=== PATIENT | male | born 1995 | race Caucasian/White ===

== ENCOUNTER 2020-03-16 01:50 | Emergency (ER) | payer MEDICAID ==
[~2020-03-16] VITALS: Ht 170.2 cm; Wt 175.0 kg
[2020-03-16] MEDS ORDERED: NS 1,000 ML IV ONE (03:00)
--- NOTE | 2020-03-16 03:19 | REPVR ---
PROCEDURE INFORMATION: Exam: XR Chest, 2 Views Exam date and time: 03/16/2020 2:41 AM Age: 24 years old Clinical indication: Chest pain TECHNIQUE: Imaging protocol: XR of the chest Views: 2 views. COMPARISON: No relevant prior studies available. FINDINGS: Lungs: Unremarkable. No consolidation. Pleural space: Unremarkable. No pleural effusion. No pneumothorax. Heart/Mediastinum: Unremarkable. No cardiomegaly. Bones/joints: Absent distal right clavicle suggesting previous resection or possibly old trauma and fracture. IMPRESSION: 1. Deformity and absence of the distal right clavicle suggesting postsurgical or possibly posttraumatic change. 2. Otherwise negative chest. Electronically signed by: Orlando Zuniga On 03/16/2020 03:20:05 AM
[2020-03-16 04:40] LABS: BASO # 0.1 10^3/uL (0.0-0.2); BASO % 0.6 % (0.0-1.0); EOS # 0.2 10^3/uL (0.0-0.5); EOS % 1.3 % (0.0-3.0); HEMATOCRIT 42.6 % (42.0-52.0); HEMOGLOBIN 13.8 g/dl (13.5-17.5); LYMPH # 1.8 10^3/uL (1.5-5.0); LYMPH % 13.2 % (24.0-44.0); MEAN CORPUSCULAR HEMOGLOBIN 28.5 pg (27.0-33.0); MEAN CORPUSCULAR HGB CONC 32.4 g/dl (32.0-36.5); MONO # 0.7 10^3/uL (0.0-0.8); MONO % 5.1 % (0.0-5.0); NEUTROPHILS # 10.8 10^3/uL (1.5-8.5); NEUTROPHILS % 79.4 % (36.0-66.0); PLATELET COUNT, AUTOMATED 235 10^3/uL (150-450); RED BLOOD COUNT 4.84 10^6/uL (4.30-6.10); WHITE BLOOD COUNT 13.6 10^3/uL (4.0-10.0)
[2020-03-16 04:56] LABS: INR 1.16; PARTIAL THROMBOPLASTIN TIME 27.5 SECONDS (24.2-38.5); PROTHROMBIN TIME 15.1 SECONDS (12.5-14.3)
[2020-03-16 05:12] LABS: ALBUMIN 4.2 GM/DL (3.2-5.2); ALT/SGPT 29 U/L (12-78); BILIRUBIN,DIRECT 0.1 MG/DL (0.0-0.2); BILIRUBIN,TOTAL 0.4 MG/DL (0.2-1.0); BLOOD UREA NITROGEN 19 MG/DL (7-18); CALCIUM LEVEL 9.5 MG/DL (8.5-10.1); CARBON DIOXIDE LEVEL 28 MEQ/L (21-32); CHLORIDE LEVEL 109 MEQ/L (98-107); CK-MB VALUE MASS 1.3 NG/ML (<3.6); CPK CREATINE PHOSPHOKINASE 120 U/L (39-308); CREATININE FOR GFR 1.01 MG/DL (0.70-1.30); GLOMERULAR FILTRATION RATE > 60.0 (>60); GLUCOSE, FASTING 98 MG/DL (70-100); LIPASE 110 U/L (73-393); MB/CK RELATIVE INDEX 1.08 (< OR =4); POTASSIUM SERUM 4.2 MEQ/L (3.5-5.1); SODIUM LEVEL 141 MEQ/L (136-145); TOTAL PROTEIN 7.1 GM/DL (6.4-8.2); TROPONIN I < 0.02 NG/ML (< 0.10)
[2020-03-16 06:18] VITALS: BP 114/58
--- NOTE | 2020-03-16 06:40 | ECGEPIP ---
[facility] - ED Test Date: 2020-03-16 Pat Name: JOSELITO HUITRON Department: Room: - Gender: Male Route Sales Person: : 1995 Requested By: JOSUE Sheth Order Number: [id number] Reading MD: Camron Nielson Measurements Intervals [place] Rate: 50 P: 38 CA: 154 QRS: 73 QRSD: 93 T: 40 QT: 412 QTc: 377 Interpretive Statements SINUS BRADYCARDIA NO PRIOR ECG FOR COMPARISON Electronically Signed on 03-16-2020 6:40:04 EST by Camron Nielson
== END 2020-03-16 06:49 | disposition home or self-care (01) ==
LOC: M ED 01:50
DX: R07.9 Chest pain, unspecified (principal); R00.1 Bradycardia, unspecified